=== PATIENT | male | born 1965 | race Caucasian/White ===

== ENCOUNTER 2020-01-01 14:25 | Inpatient (IN) | payer OTHER ==
[~2020-01-01] VITALS: Ht 175.3 cm; Wt 86.3 kg
[2020-01-01] VITALS (205 sets, daily range): BP systolic 101–140; BP diastolic 80–83; PULSE 62–99; TEMP 97.6–98.6; O2SAT 85–100
[2020-01-01 15:30] LABS: BASO % 0.3 % (0.0-2.0); EOS # 0.1 (0.0-0.7); EOS % 0.8 % (0-4.0); GRAN # 8.6 (1.4-6.5); GRAN % 71.5 % (42.2-75.2); HEMATOCRIT 49.2 % (42.0-52.0); LYMPH # 2.6 (1.2-3.4); LYMPH % 21.4 % (20.0-51.0); MEAN CELL VOLUME 92 fl (80.0-100.0); MEAN CORPUSCULAR HEMOGLOBIN 30 pg (27.0-31.0); MEAN CORPUSCULAR HGB CONC 33 g/dl (33.0-37.0); MEAN PLATELET VOLUME 9.6 fl (7.4-10.4); MONO # 0.7 (0.1-0.6); MONO % 5.6 % (1.7-9.3); PLATELET COUNT 215 K/mm3 (130-400); RED BLOOD COUNT 5.36 M/mm3 (4.20-5.60); REDCELL DISTRIBUTION WIDTH-CV 13.6 % (11.5-14.5)
[2020-01-01 15:42] LABS: ALBUMIN 4.7 gm/dL (3.5-5.0); BILIRUBIN,TOTAL 1.4 mg/dL (0.0-1.0); C-REACTIVE PROTEIN 1.5 mg/dL (0.0-0.9); CALCIUM 9.5 mg/dL (8.4-10.2); CREATININE, serum 1.04 (0.66-1.25); POTASSIUM 4.2 mmol/L (3.4-5.0); TOTAL PROTEIN 7.8 gm/dL (6.4-8.2)
[2020-01-01 15:47] LABS: ERYTHROCYTE SEDIMENTATION RATE 1 mm/hr (0-30)
[2020-01-01 15:56] LABS: TROPONIN-I 0.165 ng/mL (0.000-0.035)
[2020-01-01 16:35] LABS: INR 1.1 (0.8-3.0); PROTHROMBIN TIME 12.6 SECONDS (9.7-12.8)
[2020-01-01 16:37] LABS: PARTIAL THROMBOPLASTIN TIME 32.5 SECONDS (26.0-37.0)
--- NOTE | 2020-01-01 19:00 | NUR ---
Spoke to Bill in pharmacy regarding changes to heparin dose orders. Clarification provided by pharmacist to include. Patient's transition from Low Dose heparin orders to High dose heparin orders, as per protocol for Afib/flutter. This RN reviews most recent HepXa level to be 0.33 drawn 3 hours post initiation of heaprin gtt and low dose bolus as provided by ED. Pharmacist instructs this RN to increase heparin gtt rate from 1000units/hr to 1600units/hr to match high dose set and provide additional 3000 unit bolus in order to provide total high dose calculated bolus to patient. Will order HepXa redraw as per protocol at 2220.
--- NOTE | 2020-01-01 19:15 | NUR ---
Received report from RESHMA Zayas.
[2020-01-01] MEDS ORDERED: ASPIRIN 32325 MG/TAB PO (19:53)
--- NOTE | 2020-01-01 20:05 | NUR ---
Patient resting quietly in bed. Denies any pain or discomfort. Vitals within normal limits. Heparin currently infusing at 16 mL/hr, Cardizem infusing at 15mL/hr. Patient is currently in sinus rhythm with HR of 81. Cardizem titrated down to 10 mL/hr at 2009. Will continue to monitor.
--- NOTE | 2020-01-01 21:55 | NUR ---
Patient reports feeling light-headed and dizzy around 2124. Denies chest or arm pain at this time. Patient still in sinus rhythm with HR in the low 60s when HR at onset of shift was 80-90s. Patient denies having nodded off to sleep. Cardizem titrated to 5 mg/hr at 2127, and then put on standby at 2144. Patient has vomitted once with small amount of emesis, but otherwise states he is feeling better. Patient is currently sitting on the side of the bed; vitals within normal limits. Continues to deny any chest pain or discomfort. Will continue to monitor.
[2020-01-02] VITALS (545 sets, daily range): BP systolic 106–183; BP diastolic 72–110; PULSE 77–143; TEMP 97.6–98.4; O2SAT 69–100
--- NOTE | 2020-01-02 01:15 | NUR ---
At approximately 0100, nurse discovered that Heparin and Cardizem bags were hung incorrectly. Heparin should have been infusing at 1700 units/hr or 17 mL/hr at this time, but had actually been on standby since 2144. Patient's vitals remained within normal limits, and the patient denied any pain or discomfort. Caity Cadet APRN notified. Since Heparin had been on standby for more than two hours, a 1000 unit bolus of Heparin was administered per the high-dose protocol, and Heparin was restarted at 1700 units/hr. Cardizem discontinued at this time. Will continue to monitor.
[2020-01-02 06:58] LABS: CALCIUM 9.4 mg/dL (8.4-10.2); CREATININE, serum 1.4 (0.66-1.25)
[2020-01-02 07:14] LABS: TROPONIN-I 0.154 ng/mL (0.000-0.035)
--- NOTE | 2020-01-02 07:15 | NUR ---
Bedside report received from RESHMA Neumann.
--- NOTE | 2020-01-02 07:15 | NUR ---
Bedside report provided to RESHMA Zayas.
--- NOTE | 2020-01-02 08:00 | NUR ---
Assessment completed. Pt sitting up in bed. A/Ox3. No complaints at this time. Updated on plan of care r/t cardiology consult. Pt verbalized understanding.VSS. CAll light in reach.
--- NOTE | 2020-01-02 08:40 | NUR ---
Orders to dc Heparin gtt per Dr Escalante.
--- NOTE | 2020-01-02 09:20 | NUR ---
industrial maintenance tech notified of Echo orders.
--- NOTE | 2020-01-02 11:08 | NUR ---
Pt watching tv in bed. Updated on time of stress test around 11:30. Verbalized understanding. VSS. Denies any pain. States he would like to leave the hospital later today. Discussed with pt on waiting for results of procedure and talking with Collaborating Supervising Physician before leaving hospital.
--- NOTE | 2020-01-02 11:30 | NUR ---
Pt left unit via wheelchair for stress test.
--- NOTE | 2020-01-02 13:05 | NUR ---
Pt back to [facility] 16 from stress test via wheelchair. Pt transferred to bed with stand by assist. Steady gait. Pt requesting to eat at this time. CAlled Dr Dela Cruz and left message for him to call back.
--- NOTE | 2020-01-02 13:30 | NUR ---
Attempted to call emergency medical technician/driver, no answer.
--- NOTE | 2020-01-02 15:33 | NUR ---
tnt powder worker met with patient to discuss discharge planning. Patient states he lives alone in [place]. Patient confirmed that he does not have health insurance and does not have a primary care provider. Worker and patient discussed possible drug assistance and utilization of [facility] for primary care. Patient is open to the above plan. Anuj, financial counselor, met with patient and completed a medicaid and financial assistance applications. Case management will follow and assist with securing a safe discharge plan.
--- NOTE | 2020-01-02 19:15 | NUR ---
RECEIVED REPORT FROM LETTY ARCOS RN. PT SITTING UP IN BED WATCHING TV ON RA. VSS. CALL LIGHT WITHIN REACH.
--- NOTE | 2020-01-02 19:25 | NUR ---
Bedside reprot given to RESHMA Squires.
[2020-01-03] VITALS (313 sets, daily range): BP systolic 106–149; BP diastolic 78–111; PULSE 85–104; TEMP 97.6–98.2; O2SAT 80–100
[2020-01-03 06:49] LABS: HEMATOCRIT 42.9 % (42.0-52.0); MEAN CELL VOLUME 93 fl (80.0-100.0); MEAN CORPUSCULAR HEMOGLOBIN 29 pg (27.0-31.0); MEAN CORPUSCULAR HGB CONC 32 g/dl (33.0-37.0); MEAN PLATELET VOLUME 9.8 fl (7.4-10.4); PLATELET COUNT 144 K/mm3 (130-400); RED BLOOD COUNT 4.64 M/mm3 (4.20-5.60); REDCELL DISTRIBUTION WIDTH-CV 13.9 % (11.5-14.5)
[2020-01-03 06:50] LABS: HEMOGLOBIN 13.6 g/dl (13.5-18.0)
--- NOTE | 2020-01-03 07:05 | NUR ---
pit laborer staff here for patient. Transferred to lab via bed on CM.
--- NOTE | 2020-01-03 07:15 | NUR ---
Report from Rosa JUSTICE. medical laboratory assistant nurse in at bedside for procedure prep. Consent signed at this time.
--- NOTE | 2020-01-03 07:36 | NUR ---
SEE MARISSA FOR ALL MEDICATION ADMINISTRATION AND INTRA/POST SEDATION ASSESSMENT
--- NOTE | 2020-01-03 08:12 | NUR ---
Report recieved from Karen JUSTICE in equipment operator/laborer/supervisor.
--- NOTE | 2020-01-03 08:40 | NUR ---
Returns to [facility] 16 via bed from CL. Awake and alert. TR band on right radial, CDI. Gauze dressing to right groin CDI, tissure surrounding soft. Denies complaints of pain at this time.
--- NOTE | 2020-01-03 15:30 | NUR ---
break up worker collaborated with pharmacy and met with patient to discuss need for financial assistance with discharge medications. Patient is planning to discharge on Tuesday and will receive a voucher for his discharge medications. Worker advised that an appointment will be arranged at the [facility] as they use a sliding fee scale. Patient is agreeable and appreciative of this plan and states he has his car in the parking lot and plans to drive home.
--- NOTE | 2020-01-03 16:28 | NUR ---
furniture lumber production worker arranged for patient's initial [facility] to establish primary care, appointment for 01/08/2020 at 3:20pm. Patient should arrive at 2:50pm and bring completed registration information, proof of insurance, photo ID, and 3 most current pay stubs. Worker faxed clinical information to [facility].
[2020-01-04] VITALS (7 sets, daily range): BP systolic 125–142; BP diastolic 88–105; PULSE 92–97; TEMP 97.4–98.2; O2SAT 94
--- NOTE | 2020-01-04 07:00 | NUR ---
Bedside shift report received from RESHMA Mccullough. Patient is awake, alert, and response appropriately. Full assessment completed. Bed in lowest position. Side rails up x3. Call light and personal belongings within reach. Patient has no complaints or concerns at this time.
[2020-01-04 08:16] LABS: BASO % 0.3 % (0.0-2.0); EOS # 0.1 (0.0-0.7); EOS % 1.1 % (0-4.0); GRAN # 6.7 (1.4-6.5); GRAN % 67.7 % (42.2-75.2); HEMATOCRIT 46.9 % (42.0-52.0); HEMOGLOBIN 15.2 g/dl (13.5-18.0); LYMPH # 2.3 (1.2-3.4); LYMPH % 23.5 % (20.0-51.0); MEAN CELL VOLUME 92 fl (80.0-100.0); MEAN CORPUSCULAR HEMOGLOBIN 30 pg (27.0-31.0); MEAN CORPUSCULAR HGB CONC 32 g/dl (33.0-37.0); MEAN PLATELET VOLUME 9.9 fl (7.4-10.4); MONO # 0.7 (0.1-0.6); MONO % 6.9 % (1.7-9.3); PLATELET COUNT 161 K/mm3 (130-400)
[2020-01-04 08:18] LABS: CALCIUM 9.6 mg/dL (8.4-10.2); CREATININE, serum 1.12 (0.66-1.25)
[2020-01-04 09:55] LABS: PARTIAL THROMBOPLASTIN TIME 30.7 SECONDS (26.0-37.0)
--- NOTE | 2020-01-04 13:37 | NUR ---
ANGEL student attended clinical rounds with the team. The patient is to have a cardiac catheterization after the weekend. The patient will need a medication voucher at discharge. ANGEL student provided [employer] registration packet for the patient. career services manager will continue to follow.
--- NOTE | 2020-01-04 19:15 | NUR ---
Bedside shift report given to RESHMA Mccullough and care handed over at this time.
[2020-01-05] VITALS (9 sets, daily range): BP systolic 115–159; BP diastolic 82–103; PULSE 82–98; TEMP 97.7–98.5; O2SAT 97–98
--- NOTE | 2020-01-05 04:09 | NUR ---
Pt on RA for >24hrs. Completing intervention per protocol.
[2020-01-05 05:06] LABS: HEMATOCRIT 46.8 % (42.0-52.0); HEMOGLOBIN 15.3 g/dl (13.5-18.0); MEAN CELL VOLUME 91 fl (80.0-100.0); MEAN CORPUSCULAR HEMOGLOBIN 30 pg (27.0-31.0); MEAN CORPUSCULAR HGB CONC 33 g/dl (33.0-37.0); PLATELET COUNT 170 K/mm3 (130-400); RED BLOOD COUNT 5.15 M/mm3 (4.20-5.60); REDCELL DISTRIBUTION WIDTH-CV 14.1 % (11.5-14.5)
--- NOTE | 2020-01-05 07:15 | NUR ---
Report recieved from RESHMA Mccullough. Heparin gtt rate and concentration verified. Patient denies needs at this time. Care assumed.
--- NOTE | 2020-01-05 19:35 | NUR ---
Received report form Kellie. Patient is awake and alert. He is walking around the room. Denies any pain. He requests to cover his IV site as he wants to take a bath. With IVF at right AC infusing heparin drip at 15ml/hr. With bandaid on the right wrist, clean, dry and intact.
--- NOTE | 2020-01-05 19:40 | NUR ---
Pt up to room 316. Pt is A&O, independent in room. Pt on room air, 20G RAC IV w/ hep gtt running at 15ML/hr. Next hep xa lab to be drawn at 2019 this evening. Pt on tele. Pt breathing is even and unlabored. Pt has bandaid to rt radial site, CDI from heart cath procedure 01/03. Pt also has Rt femoral site from heart cath 01/03, CDI, soft, no hematoma, some bruising noted. Pt denies pain, chest pain, dizziness, N/V/D. No concerns expressed at this time.
[2020-01-06 04:55] VITALS: BP 125/84; PULSE 81; TEMP 97.5
--- NOTE | 2020-01-06 05:36 | NUR ---
Patient had an uneventful night. No complains of pain. Patient has been walking around the room. LAtest HepaXa on normal range, no changes done on heparin drip.
[2020-01-06 06:29] LABS: HEMATOCRIT 45.8 % (42.0-52.0); HEMOGLOBIN 14.8 g/dl (13.5-18.0); MEAN CELL VOLUME 91 fl (80.0-100.0); MEAN CORPUSCULAR HEMOGLOBIN 29 pg (27.0-31.0); MEAN CORPUSCULAR HGB CONC 32 g/dl (33.0-37.0); MEAN PLATELET VOLUME 9.8 fl (7.4-10.4); PLATELET COUNT 150 K/mm3 (130-400); RED BLOOD COUNT 5.05 M/mm3 (4.20-5.60); REDCELL DISTRIBUTION WIDTH-CV 14.1 % (11.5-14.5)
[2020-01-06 06:41] LABS: ALBUMIN 4.1 gm/dL (3.5-5.0); BILIRUBIN,TOTAL 1.4 mg/dL (0.0-1.0); CALCIUM 9.7 mg/dL (8.4-10.2); CREATININE, serum 1.04 (0.66-1.25); POTASSIUM 3.3 mmol/L (3.4-5.0); TOTAL PROTEIN 7.3 gm/dL (6.4-8.2)
[2020-01-06 07:57] VITALS: BP 109/73; PULSE 81; TEMP 97.6
--- NOTE | 2020-01-06 10:30 | NUR ---
Pt assessment completed and charted. medications administered per DEC. Pt is A&O, indpendent in room. Pt on room air, breathing even and unlabored, denies SOB. Pt has RAC IV, hep gtt running this morning at 15ml/hr, dc'd at this time. IV flushes w/o complications. Pt denies any chest pain, N/V/D. Pt has dressing to rt groin from heart cath, CDI, no hematoma noted. Pt denies any pain or discomfort to site. No other concerns expressed.
[2020-01-06 11:54] VITALS: BP 113/82; PULSE 85; TEMP 97.9
[2020-01-06 16:45] VITALS: BP 100/64; PULSE 86; TEMP 97.9
--- NOTE | 2020-01-06 17:19 | NUR ---
Pt has had uneventful day, denied any pain throughout day. VSS. No further needs.
--- NOTE | 2020-01-06 19:00 | NUR ---
Received report from Kellie. Seen patient walking around the room. With INT on Right AC. Denies pain. Will continue to monitor.
[2020-01-06 19:56] VITALS: BP 106/75; PULSE 83; TEMP 98.4
--- NOTE | 2020-01-06 20:30 | NUR ---
Instructed patient he's NPO by midnight. Consent signed for the procedure carmen.
[2020-01-06 23:11] VITALS: BP 101/72; PULSE 76; TEMP 98.2
[2020-01-07] VITALS (289 sets, daily range): BP systolic 112–1255; BP diastolic 79–107; PULSE 75–91; TEMP 97.6–97.9; O2SAT 90–100
--- NOTE | 2020-01-07 06:18 | NUR ---
Patient had an uneventful night. Maintained on NPO. Will endorse to day shift nurse.
[2020-01-07 06:55] LABS: CALCIUM 9.7 mg/dL (8.4-10.2); CREATININE, serum 1.18 (0.66-1.25); MAGNESIUM 2.2 mg/dL (1.6-2.3); POTASSIUM 3.9 mmol/L (3.4-5.0)
--- NOTE | 2020-01-07 09:03 | NUR ---
Assessment complete. Pt sitting up in bed. Alert and oriented. States he feels fine, he is just hungry and wants to go to his procedure. Access sites for prev cath are CD&I, pt states groin site is bruised but is not bothering him. Pt is aware of his POC. No pain other than the minor pain in his AC IV site. Mild tenderness in radial cath access type. Pt has still been NPO since midnight last night. Continues to urinate in urinal for accurate measurement. No other needs at this time. Call light in reach.
--- NOTE | 2020-01-07 11:45 | NUR ---
Pt down to field laborer for procedure at this time.
--- NOTE | 2020-01-07 11:58 | NUR ---
SEE MERGE FOR MEDICATION ADMINISTRATION TIMES AND INTRA AND POST SEDATION ASSESSMENTS.
--- NOTE | 2020-01-07 13:30 | NUR ---
Patient arrived to [facility] 16 from dental laboratory technician apprentice at this time, he is alert/oriented, vital signs stable, right groin site femoral arterial sheath is still in place/ being maintained by lighting engineering technician, explained importance of laying flat and keeping right leg straight, denies other needs at this time
--- NOTE | 2020-01-07 13:39 | NUR ---
HODA collaborated with the pharmacist. The patient is going to be prescribed Xarelto upon discharge and the patient will not be able to afford this. The talent sourcing specialist, Dr. Escalante, has free samples and plans to supply the patient with 30 days of the Xarelto upon discharge. SW to continue to follow.
--- NOTE | 2020-01-07 14:38 | NUR ---
First visit from the lead recreation assistant. No needs right now.
--- NOTE | 2020-01-07 14:55 | NUR ---
photo lab specialist in room removing femoral arterial sheath at this time, vital signs stable, will contiue to monitor
--- NOTE | 2020-01-07 17:41 | NUR ---
Patient continues to do well post PCI, alert/oriented, vital signs stable, right femoral access site is soft / dressing C/D/I with no signs of bleeding or hematoma, will continue to monitor
--- NOTE | 2020-01-07 18:00 | NUR ---
Report received from RESHMA Daigle.
--- NOTE | 2020-01-07 19:15 | NUR ---
Report given to RESHMA Hurst.
[2020-01-08] VITALS (435 sets, daily range): BP systolic 102–112; BP diastolic 72–84; PULSE 72–84; TEMP 97.5–98; O2SAT 93–100
--- NOTE | 2020-01-08 04:34 | NUR ---
PT ON RA FOR > 24 HRS, COMPLETING INTERVENTION PER PROTOCOL.
[2020-01-08 08:19] LABS: ALBUMIN 4.8 gm/dL (3.5-5.0); BILIRUBIN,TOTAL 1.7 mg/dL (0.0-1.0); CALCIUM 9.9 mg/dL (8.4-10.2); CREATININE, serum 0.95 (0.66-1.25); POTASSIUM 4.5 mmol/L (3.4-5.0); TOTAL PROTEIN 8.2 gm/dL (6.4-8.2)
--- NOTE | 2020-01-08 10:59 | NUR ---
PT BECOMING ANXIOUS AND FRUSTRATED WITH WAITING TO BE DISCHARGEDF. PATIENT HAS REMOVED HIS TELEMETRY LEADS.
--- NOTE | 2020-01-08 11:28 | NUR ---
SPOKE WITH DR WESTON OFFICE AND HAVE PATIENT SCHEDULED FOR APPT 01/14 AT 0800.
[2020-01-08] MEDS ORDERED: XARELTO20 MG PO (11:33)
[2020-01-08] MEDS ORDERED: LASIX 40MG TABL40 MG PO (11:34)
[2020-01-08] MEDS ORDERED: TOPROL XL 25MG25 MG PO (11:34)
[2020-01-08] MEDS ORDERED: PLAVIX 75MG TAB75 MG PO (11:34)
[2020-01-08] MEDS ORDERED: ASPIRIN 81M81 MG/TA2 PO (11:34)
[2020-01-08] MEDS ORDERED: ZESTRIL 5MG5 MG PO (11:34)
[2020-01-08] MEDS ORDERED: LIPITOR 40MG TA40 MG PO (11:34)
--- NOTE | 2020-01-08 11:59 | NUR ---
sewage disposal worker met with patient and assisted with hospital voucher for prescriptions at [facility]. Worker provided address and phone number and instructed patient to not enter [facility], rather call when you get there and they will bring prescriptions out to your car. Patient has an appointment set with [facility] and will then utilize their prescription drug program.
--- NOTE | 2020-01-08 12:00 | NUR ---
DISCHARGE INSTRUCTIONS, PATIENT HEALTH SUMMARY, AND HOME MEDICATIONS REVIEWED WITH PATIENT. VOUCHERS PROVIDED BY [facility] IN STATE TESTED NURSING ASSISTANT. PATIENT SENT WITH SAMPLE BOTTLES OF XARELTO FROM DR WESTON. PATIENT'S IV DISCONTINUED. PATIENT PREFERRED TO AMBULATE. PATIENT ESCROTED TO ER ENTRANCE WHERE PATIENT'S VEHICLE WAS PARKED. PATIENT DISCHARGED WITH ALL BELONGINGS.
== END 2020-01-08 11:55 | disposition home or self-care (01) | DRG 280 ==
LOC: COL.ER 14:25 → IMCU 16:14 → MEDICAL 01-05 16:11 → IMCU 01-07 14:05
PROVIDERS: Emergency Medicine; Hospitalist; ADMIT Internal Medicine
DX: I48.91 Unspecified atrial fibrillation (principal); I50.21 Acute systolic (congestive) heart failure; I21.4 Non-ST elevation (NSTEMI) myocardial infarction; I10 Essential (primary) hypertension; F17.210 Nicotine dependence, cigarettes, uncomplicated; I25.5 Ischemic cardiomyopathy; Z79.82 Long term (current) use of aspirin; E87.6 Hypokalemia; I25.10 Atherosclerotic heart disease of native coronary artery without angina pectoris
CPT/HCPCS: 99223-AI; 99231-AI; 99232-AI; 99233-AI; 99239; A9500; C1725; C1769; C1874; C1887; C1894; C9600; J1644; J1650; J1940; J2250; J2785; J3010; J7030; Q9967

== ENCOUNTER 2020-09-30 11:28 | Day surgery (SDC) | payer SELFPAY ==
[~2020-09-30] VITALS: Ht 175.3 cm; Wt 91.8 kg
[2020-09-30] VITALS (9 sets, daily range): BP systolic 120–166; BP diastolic 64–97; PULSE 79–91; TEMP 97.8–98.6
[~2020-09-30 11:28] MED LIST: ASPIRIN 32325 MG/TAB PO; ASPIRIN 81M81 MG/TA2 PO; LASIX 40MG TABL40 MG PO; LIPITOR 40MG TA40 MG PO; PLAVIX 75MG TAB75 MG PO; TOPROL XL 25MG25 MG PO; XARELTO20 MG PO; ZESTRIL 5MG5 MG PO
[2020-09-30 12:33] LABS: HEMOGLOBIN 11.6 g/dl (13.5-18.0); MEAN CELL VOLUME 89 fl (80.0-100.0); MEAN CORPUSCULAR HEMOGLOBIN 30 pg (27.0-31.0); MEAN CORPUSCULAR HGB CONC 33 g/dl (33.0-37.0); MEAN PLATELET VOLUME 9.5 fl (7.4-10.4); PLATELET COUNT 209 K/mm3 (130-400); REDCELL DISTRIBUTION WIDTH-CV 13.4 % (11.5-14.5)
[2020-09-30 12:38] LABS: HEMATOCRIT 34.7 % (42.0-52.0)
[2020-09-30 12:39] LABS: CALCIUM 9.7 mg/dL (8.4-10.2); CREATININE, serum 1.3 (0.66-1.25); POTASSIUM 3.9 mmol/L (3.4-5.0)
[2020-09-30 12:40] LABS: PROTHROMBIN TIME 11.3 SECONDS (9.7-12.8)
[2020-09-30] MEDS ORDERED: ELIQUIS 5MG PO (12:57)
[2020-10-01 00:01] VITALS: BP 147/83; PULSE 83; TEMP 98
[2020-10-01 03:32] VITALS: BP 149/86; PULSE 74; TEMP 98
[2020-10-01 08:03] VITALS: BP 142/74; PULSE 70; TEMP 97.7
== END 2020-10-01 13:15 | disposition home or self-care (01) ==
LOC: COL.CAR 11:28 → MEDICAL 16:51 → COL.CAR 10-01 13:15
PROVIDERS: Internal Medicine Interventional Cardiology
DX: I13.0 Hypertensive heart and chronic kidney disease with heart failure and stage 1 through stage 4 chronic kidney disease, or unspecified chronic kidney disease (principal); I50.22 Chronic systolic (congestive) heart failure; I48.92 Unspecified atrial flutter; E78.5 Hyperlipidemia, unspecified; I25.10 Atherosclerotic heart disease of native coronary artery without angina pectoris; Z79.02 Long term (current) use of antithrombotics/antiplatelets; Z79.01 Long term (current) use of anticoagulants; N18.9 Chronic kidney disease, unspecified
CPT/HCPCS: OP; J0690; J2250; J3010; J7030

== ENCOUNTER 2021-01-13 11:15 | Day surgery (SDC) | payer SELFPAY ==
[~2021-01-13] VITALS: Ht 175.3 cm; Wt 93.0 kg
[~2021-01-13 11:15] MED LIST changes: +ELIQUIS 5MG PO
[2021-01-13 12:38] LABS: HEMOGLOBIN 13.1 g/dl (13.5-18.0); MEAN CELL VOLUME 86 fl (80.0-100.0); MEAN CORPUSCULAR HEMOGLOBIN 28 pg (27.0-31.0); MEAN CORPUSCULAR HGB CONC 33 g/dl (33.0-37.0); MEAN PLATELET VOLUME 9.4 fl (7.4-10.4); PLATELET COUNT 226 K/mm3 (130-400); RED BLOOD COUNT 4.64 M/mm3 (4.20-5.60); REDCELL DISTRIBUTION WIDTH-CV 13.2 % (11.5-14.5)
[2021-01-13 12:44] LABS: CALCIUM 9.6 mg/dL (8.4-10.2); CREATININE, serum 1.34 (0.66-1.25)
[2021-01-13] MEDS ORDERED: BRILINTA90 MG PO (12:50)
[2021-01-13] MEDS ORDERED: LIPITOR 40MG TA40 MG PO (12:51)
[2021-01-13] MEDS ORDERED: LASIX 40MG TABL40 MG PO (12:52)
[2021-01-13] MEDS ORDERED: LOPRESSOR 550 MG/TAB PO (12:52)
[2021-01-13 12:53] LABS: INR 1.1 (0.8-3.0); PROTHROMBIN TIME 11.8 SECONDS (9.7-12.8)
[2021-01-13] MEDS ORDERED: BACTRIM DS 8001 TAB PO (12:53)
[2021-01-13 12:54] VITALS: BP 154/95; PULSE 76; TEMP 98.9
[2021-01-13 15:10] VITALS: BP 168/108; PULSE 81
--- NOTE | 2021-01-13 15:51 | NUR ---
ICD being removed today. requesting pt to have LifeVest following removal. Vazquez with [facility] contacted and reports discussing LifeVest fitting with patient earlier today. Per aVzquez, pt will be contacted by [facility] this evening to schedule fitting tomorrow morning. This RN verifying this with the pt, who states that he did speak with V[facility] and is aware of this plan for fitting the LifeVest tomorrow. present for this discussion and is also aware of this plan. states he is ok with pt being fitted for LifeVest tomorrow morning. also states he is ok with pt discharging as outpatient following completion of procedure.
[2021-01-13 16:27] VITALS: BP 128/82; PULSE 74
[2021-01-13 17:00] VITALS: BP 127/82; PULSE 76
[2021-01-13 17:58] VITALS: BP 144/88; PULSE 74
--- NOTE | 2021-01-13 17:58 | NUR ---
INT discontinued intact. Discharge instructions given.
--- NOTE | 2021-01-13 18:35 | NUR ---
Pt escorted to exit via wheelchair. He has been ambulatory in room with steady gait. His IV was dc'd by Jazmin JUSTICE and he received dc instructions from Jazmin. Pt denies any questions at the time of his departure.
== END 2021-01-13 19:18 | disposition home or self-care (01) ==
LOC: COL.CAR 11:15
PROVIDERS: Internal Medicine Interventional Cardiology
DX: T82.7XXA Infection and inflammatory reaction due to other cardiac and vascular devices, implants and grafts, initial encounter (principal); B95.8 Unspecified staphylococcus as the cause of diseases classified elsewhere; I25.5 Ischemic cardiomyopathy; I42.0 Dilated cardiomyopathy; I50.22 Chronic systolic (congestive) heart failure; I08.1 Rheumatic disorders of both mitral and tricuspid valves; I25.10 Atherosclerotic heart disease of native coronary artery without angina pectoris; Z79.02 Long term (current) use of antithrombotics/antiplatelets; Z79.01 Long term (current) use of anticoagulants; Z79.899 Other long term (current) drug therapy
CPT/HCPCS: J0690; J2250; J3010; J7030

== ENCOUNTER → 2021-06-10 | Outpatient (CLI) | payer SELFPAY ==
[~2021-06-10] MED LIST changes: +BACTRIM DS 8001 TAB PO; +BRILINTA90 MG PO; +LOPRESSOR 550 MG/TAB PO
== END ==
LOC: COL.VAS 14:22
DX: I42.9 Cardiomyopathy, unspecified (principal); I50.22 Chronic systolic (congestive) heart failure; Z95.811 Presence of heart assist device